=== PATIENT | female | born 1985 | race Hispanic/Latino ===

== ENCOUNTER 2017-11-06 01:55 | Inpatient (IN) | payer MEDICAID ==
[2017-11-06 02:07] VITALS: BMI 30.1
--- NOTE | 2017-11-06 07:04 | OBHP ---
Datetime: 11/06/2017 03:24 IP Adm Impression: Term, intrauterine ; Intact Membranes IP Adm Impression Other: Early Labor IP Admit Plan: Observation/Evaluation Admit Comment, IP Provider: 32 y/o F at 40.1 weeks GA, AYLA 11/05/17 by LMP 01/29/17 and confirm ed by 1st trim US, c/o CTX that began 4 hours ago, began as every 20 minutes in frequencyand now as e very 5 minutes, now 6/10 intensity. No vaginal bleeding or LOF. FM present. Pt reports expulsing a bl oody brownish mucus plug yesterday. Pt was evaluated by Dr Zhang yesterday, pt was reported to be 2-3 cm cervical dilated. Pt denies fever, headache, CP, SOB, N/V, urinary symptoms, rash. NKDA Meds: PNV P[facility] Clinic: [place], Dr Zhang. PN Labs: GBS neg, HIV neg, HBsAg neg, RPR neg, GC/Chlamydia neg, Blood group B+, antibody screen n eg. Rubella-immune. US at 36 weeks GA on 10/09: unremarkable and cephalic presentation. OBHx: . PMHx: Obstructive hydrocephalus, PSHx: Obstructive hydrocephalus corrective procedure. FHx: NC SHx: No tobacco, alcohol or rec drugs. A/P: 32 y/o F with IUP at 40.1 weeks GA. Pelvic pressure. Plan: - NST. - Observe. - Will re-evaluate in 2 hours for labor progression - Dr Shafer Notified. Pt was re examined at 5AM Cervical exam no change. Pt with irregular contractions. D/c Home was recommended. Pt wants to be admitted and go for water . Dr Shafer Notified. Plan as per Dr Shafer: Continue observation for progress of labor. To be re evaluated in the morning. Pelvic Type - PN: Adequate Extremities - PN: Normal Abdomen - PN: Normal Lungs - PN: Normal Heart - PN: Normal Thyroid - PN: Normal Neurologic - PN: Normal HEENT - PN: Normal General - PN: Normal Presentation-Admit: Vertex FHR - Baseline A Provider: 145 Membranes, Provider: Intact Contraction Comments Provider: Q 2-3 Gestation - Est Wks by US: 40.1 EGA AdmitDate IP: 40.1 Vital Signs Provider: Reviewed IP Chief Complaint: Uterine contractions; Maternal discomfort NICHD Variability Prov Fetus A: Moderate 6-25bpm FHR Category Provider Fetus A: Category I NICHD Decel Fetus A IP Provider: None Dilatation, Provider: 2-3 Effacement, Provider: 50 Station, Provider: -3 Genitourinary Exam: Normal
[2017-11-06] MEDS: Lactated Ringer's 1,000 ML IV SCH ×4 (08:30→20:00)
[2017-11-06 08:46] LABS: HEMATOCRIT 32.8 % (34.0-47.0); MEAN CELL VOLUME 82.9 fl (81.0-99.0); MEAN CORPUSCULAR HGB CONC 31.4 g/dL (33.0-37.0); RED CELL DISTRIBUTION WIDTH 13.8 % (11.5-14.5); WHITE BLOOD COUNT 9.5 K/uL (4.8-10.8)
[2017-11-06] MEDS ORDERED: Bupivacaine HCl 0.25% PF (10 ml) Inj ONE (10:25)
[2017-11-06] MEDS ORDERED: Fentanyl/Bupivacaine HCl 250 ML EPI ONE (10:25)
--- NOTE | 2017-11-06 11:16 | OBADHP ---
Datetime: 11/06/2017 11:10 Admit Comment, IP Provider: 32 yo G1 at 40+1 wks in labor Pt admitted to L_D FHT reassuring. GBS negative. H_P dictated, "[id number]" Extremities - PN: Normal Abdomen - PN: Normal Back - PN: Normal Lungs - PN: Normal Heart - PN: Normal Neurologic - PN: Normal HEENT - PN: Normal General - PN: Normal FHR - Baseline A Provider: 130's Membranes, Provider: Intact Contraction Comments Provider: irregular Vital Signs Provider: Reviewed IP Chief Complaint: Uterine contractions NICHD Variability Prov Fetus A: Moderate 6-25bpm NICHD Accel Fetus A IP Provider: 15X15 NICHD Decel Fetus A IP Provider: None Dilatation, Provider: 4 Effacement, Provider: 100 Station, Provider: -3 Genitourinary Exam: Normal EGA AdmitDate IP: 40.1 IP Adm Impression: Term, intrauterine IP Admit Plan: Admit to unit; Initiate labor protocol Datetime: 11/06/2017 03:24 IP Adm Impression Other: Early Labor Pelvic Type - PN: Adequate Thyroid - PN: Normal Presentation-Admit: Vertex Gestation - Est Wks by US: 40.1 FHR Category Provider Fetus A: Category I
--- NOTE | 2017-11-06 13:47 | HP ---
HISTORY OF PRESENT ILLNESS: This is a 32-year-old G1 at 40 weeks and 1 day with an EDC of 11/05/2017 by LMP consistent with a 12-week ultrasound, who presents with contractions since 23:30 every 5 minutes and some discharge. The patient reports some bloody show after her exams last night. Denies leaking of fluid. The patient's care was with Dr. Zhang at [facility]. 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 GBS was negative as of 10/09/2017. PAST MEDICAL HISTORY: Healthy, although she was born with a brain hydrocephalus and blockage symptoms in 1998 when she was 14 years old. She had no shunt placed, but she had a third ventriculoscopy with a bypass at 14 years old. PAST SURGICAL HISTORY: Third ventriculoscopy, no shunt, with a bypass at 14 years old. She had broken her left arm at 9 years old and needed surgery. MEDICATIONS: vitamins and Tums as needed. [employer] LAW CLERK HISTORY: Regular periods. The patient denies any STDs or any abnormal Pap smears. FAMILY HISTORY: Maternal great grandmother with breast cancer. SOCIAL HISTORY: The patient denies tobacco, alcohol, or illicit drug use. Of note, menarche was at 12 years old. ALLERGIES: NO KNOWN DRUG ALLERGIES. PHYSICAL EXAMINATION: VITAL SIGNS: Afebrile. Vital signs are stable. GENERAL: The patient appears uncomfortable during contractions. HEART: Regular rate and rhythm. LUNGS: Clear to auscultation bilaterally. ABDOMEN: Soft, nontender, gravid. EXTREMITIES: Nontender. VAGINAL: 4/ 100/ -2 at 07:40 a.m. External monitoring: Baseline is in the 130s with moderate variability and positive accelerations. Tocodynamometer: difficult to discern, but her contractions may be irregular. LABORATORY DATA: Blood type is B positive, antibody screen negative. Hemoglobin electrophoresis is within normal limits. Urine culture with no growth. TSH was 2.16. RPR was nonreactive. Rubella was immune. Hepatitis B surface antigen was negative. Pap smear was negative. HPV negative. Gonorrhea and chlamydia are negative. On 08/15/2017, one-hour Glucola was 116. HIV negative. RPR nonreactive. On 10/09/2017, group B Strep was negative. Hemoglobin was 10. On 06/18/2017, her AFP was negative. On 04/26/2017, Panorama was low-risk female fetus. ASSESSMENT AND PLAN: This is a 32-year-old G1 at 40 weeks and 1 day, in labor, desires an epidural. The patient is to be admitted to labor and delivery for labor management. heart tracing is reassuring and GBS is negative. Latrice Crystal MD MTDPopeye
[2017-11-06] MEDS ORDERED: Oxytocin 30 UNITS in Sodium Chloride 0.9% 500 ML IV ONE (13:58)
[2017-11-06] MEDS ORDERED: Lidocaine 1% Inj (20ml) ONE (14:30)
[2017-11-07] MEDS ORDERED: ceFAZolin IV 2 gm in Dextrose 2 GM/50 ML BAG IVPB ONE ×2 (00:42→00:50)
--- NOTE | 2017-11-07 00:42 | OBPN ---
Datetime: 11/07/2017 00:37 IP Progress Impression: Arrest of dilatation/descent IP Informed Consent Obtain: Section Delivery; Risks, Benefits and Alternatives Discussed IP Progress Plan: Deliver- Section Membranes, Provider: Ruptured FHR - Baseline A Provider: 130s IP Progress Note Comment: 32 yo G1 at 40+2 wks w/ arrest of descent Discussed dx w/ pt and her Consents signed. All questions answered. Vital Signs Provider: Reviewed NICHD Accel Fetus A IP Provider: 15X15 NICHD Variability Prov Fetus A: Moderate 6-25bpm Dilatation, Provider: 10 Effacement, Provider: 100 Station, Provider: 0 Datetime: 11/06/2017 11:10 Contraction Comments Provider: irregular NICHD Decel Fetus A IP Provider: None Datetime: 11/06/2017 03:24 Gestation - Est Wks by US: 40.1 Presentation-Admit: Vertex FHR Category Provider Fetus A: Category I
[2017-11-07] MEDS ORDERED: Morphine 5 mg/10 ml preservative-free Inj(Duramorph) ONE (00:44)
[2017-11-07] MEDS ORDERED: Oxytocin 30 UNITS in Sodium Chloride 0.9% 500 ML IV ONE (00:51)
[2017-11-07] MEDS ORDERED: Oxycodone/Acetaminophen 5/325 mg Tab PO PRN ×4 (02:17→05:41)
[2017-11-07] MEDS ORDERED: DiphenhydrAMINE 50 mg/ml Inj IVP PRN (02:33)
[2017-11-07] MEDS ORDERED: Naloxone 0.4 mg/ml Inj (Adult) IVP PRN (02:33)
[2017-11-07] MEDS ORDERED: Simethicone 80 mg Chewtab PO SCH (04:00)
[2017-11-07] MEDS ORDERED: Lactated Ringer's 1,000 ML IV SCH (05:41)
[2017-11-07] MEDS: Simethicone 80 mg Chewtab PO SCH ×3 (09:30→23:05)
[2017-11-07 11:24] LABS: WHITE BLOOD COUNT 12.8 K/uL (4.8-10.8)
[2017-11-07 11:25] LABS: BASO % 0.1 % (0.0-2.0); EOS % 0.1 % (0.0-4.0); HEMATOCRIT 24.9 % (34.0-47.0); LYMPH # 1.1 K/uL (1.0-4.3); LYMPH % 9.6 % (20.0-40.0); MEAN CELL VOLUME 81.7 fl (81.0-99.0); MEAN CORPUSCULAR HEMOGLOBIN 26.4 pg (27.0-31.0); MEAN CORPUSCULAR HGB CONC 32.3 g/dL (33.0-37.0); MEAN PLATELET VOLUME 8.5 fl (7.2-11.7); MONO % 8.7 % (0.0-10.0); NEUT # 1.2 K/uL (1.8-7.0); NEUT % 81.5 % (50.0-75.0); NRBC % 10.4 % (0.0-0.0); PLATELET COUNT 244 K/uL (130-400); RED CELL DISTRIBUTION WIDTH 14.1 % (11.5-14.5)
--- NOTE | 2017-11-07 11:58 | OBPPN ---
Datetime: 11/07/2017 11:56 PP Pain Prov: Within normal limits PP Nausea Prov: Denies PP Flatus Prov: Yes PP Breasts Prov: Not Done PP Heart Prov: Normal PP Lungs Prov: Normal PP Abdomen/Uterus Prov: Normal PP Lochia Prov: Not Done PP Vulva/Perineum Prov: Not Done PP CVA Tenderness Prov: Normal PP Extremities Prov: Normal PP C/S Incision Prov: Normal PP Progress Prov: Normal PP Impression Prov: Normal progression PP Plan Prov: Continue present management PP Progress Note Prov: Patient doing well pain well controlled Vital signs stable afebrile Uterus firm below the umbilicus Incision clean dry and intact Postoperative day #1 Ambulation, regular diet, analgesics as needed Vital Signs Provider PP: Reviewed
[2017-11-07 13:16] LABS: NEUTROPHIL 86 % (42-75); TOTAL CELLS COUNTED 100
[2017-11-08] MEDS: Simethicone 80 mg Chewtab PO SCH ×4 (04:55→22:39)
--- NOTE | 2017-11-08 07:58 | NBPN ---
Datetime: 11/08/2017 07:56 Nsy Prov Gen Appearance: Within Normal Limits Nsy Prov Skin: Within Normal Limits Nsy Prov Neuro: Normal Tone; Stanton; Grasp; Root; Suck Nsy Prov Musculoskeletal: Within Normal Limits; Full Range of Motion; Spontaneous Movement All Extre mities; Intact Clavicles; Clavicles without Crepitus; Gluteal Folds Symmetrical; Spine Within Normal Limits; No Sacral Dimple/Cyst Nsy Prov Head: Normal Fontanelles; Normocephalic; Sutures WNL Nsy Prov EENT: Mouth Within Normal Limits; Ears Within Normal Limits; Eyes Within Normal Limits; Eye s Red Reflex Bilaterally; Nose Within Normal Limits; Face Within Normal Limits Nsy Prov Cardiovascular: Within Normal Limits; Normal Pulses Nsy Prov Respiratory: Within Normal Limits Nsy Prov GI: Within Normal Limits; Soft; Normal Liver; Non Palpable Spleen; Patent Anus Nsy Prov Umbilicus: Within Normal Limits; Three Vessel Cord Nsy Prov : Normal Female Genitalia Nsy Prov Impression: Healthy Term [place]; Vital Signs Appropriate; Bonding Appropriately; Voiding a nd Stooling Nsy Prov Plan: Continue Care Nsy Prov Impression/Plan Details: Well baby girl.
--- NOTE | 2017-11-08 08:42 | OBDS ---
DELIVERY PERSONNEL Delivery Doctor: Juan M Crystal MD Packing Clerk: Catalina TSAI, Oneyda TSAI Anesthesiologist: Matt Thurman MD MATERNAL INFORMATION Delivery Anesthesia: Epidural; Spinal Medications in Delivery: Pitocin Estimated Blood Loss (ml): 800 Placenta Cultured: No Maternal Complications: Prolonged Second Stage > 2 Hrs Provider Comments: Pre-op dx: 32 yo G1 at 40+2 wks w/ arrest of descent Post-op dx: Same Procedure: Primary low transverse section Surgeon: Bonilla Ad Compositor: Dr. Baer, the hospitalist Anesthesia: Spinal Anesthesiologist: Dr. Thurman Findings: A viable female delivereed through clear fluid at 1:28 am. Apgars 9 and 9. Wt 8 #1, 3670gms. Nl appearing uterus, tubes and ovaries Complications: None EBL: 800 mL LABOR SUMMARY EDC: 11/05/2017 00:00 No. Babies in Womb: 1 Attempted: No Labor Anesthesia: Epidural, Spinal LABOR INFORMATION Reason for Induction: Not Applicable Onset of Labor: 11/05/2017 23:00 Complete Dilatation: 11/06/2017 21:35 Oxytocin: Augmentation Group B Beta Strep: Negative Antibiotics # of Doses: 1 Antibiotics Time of Last Dose: 0058 Steroids Given: None Reason Steroids Not Administered: Not Applicable MEMBRANES Membranes Rupture Method: Spontaneous Rupture of Membranes: 11/06/2017 19:20 Length of Rupture (hrs): 6.13 Amniotic Fluid Color: Clear Amniotic Fluid Amount: Moderate Amniotic Fluid Odor: Normal STAGES OF LABOR Stage 1 hrs: 22 Stage 1 min: 35 Stage 2 hrs: 3 Stage 2 min: 53 Stage 3 hrs: 0 Stage 3 min: 1 Total Time in Labor hrs: 26 Total Time in Labor min: 29 CSECTION DELIVERY Primary Indication: Arrest of Descent CSection Urgency: Non Elective CSection Incidence: Primary Labor: Labor Elective: Nonelective CSection Incision: Lower Uterine Transverse BABY A INFORMATION Infant Delivery Date/Time: 11/07/2017 01:28 Method of Delivery: Born in Route : No : N/A Forceps: N/A Vacuum Extraction: N/A Shoulder Dystocia : No SHOULDER DYSTOCIA BABY A Infant Delivery Date/Time: 11/07/2017 01:28 PRESENTATION/POSITION BABY A Presentation: Cephalic Cephalic Presentation: Vertex Breech Presentation: N/A PLACENTA INFORMATION BABY A Placenta Delivery Time : 11/07/2017 01:29 Placenta Method of Delivery: Manual Removal Placenta Status: Delivered SCORES BABY A Heart Rate 1 min: >100 bpm Resp Effort 1 min: Good Cry Reflex Irritability 1 min: Cough or Sneeze or Pulls Away Muscle Tone 1 min: Active Motion Color 1 min: Body [place], Extremities Blue Resuscitation Effort 1 min: Tactile Stimulation SCORE 1 MIN: 9 Heart Rate 5 min: >100 bpm Resp Effort 5 min: Good Cry Reflex Irritability 5 min: Cough or Sneeze or Pulls Away Muscle Tone 5 min: Active Motion Color 5 min: Body [place], Extremities Blue Resuscitation Effort 5 min: N/A SCORE 5 MIN: 9 INFORMATION BABY A Gestational Age at Delivery: 40.2 Gestational Status: Term Outcome : Liveborn Condition : Stable Sex: Female IDENTIFICATION/MEDS BABY A ID Band Number: [id number] ID Band Location: Left Leg; Left Arm WEIGHT/LENGTH BABY A Infant Birthweight (gms): 3670 Weight (lb): 8 Infant Weight (oz): 1 CORD INFORMATION BABY A No. Cord Vessels: 3 Nuchal Cord : N/A Cord Blood Taken: Yes Infant Suction: Mouth; Nose ASSESSMENT BABY A Infant Complications: None Physical Findings at Delivery: Within Normal Limits Infant Respirations: Appears Normal Maintenance Helper Utility Engineer/ALS Called : No Care By: Flaquito Sky RN Transferred To: Remains with Mother
--- NOTE | 2017-11-08 09:10 | OP ---
PROCEDURE DATE: 11/07/2017 PREOPERATIVE DIAGNOSES: This is a 32-year-old 1 at 40 weeks and 2 days with arrest of descent. POSTOPERATIVE DIAGNOSES: This is a 32-year-old 1 at 40 weeks and 2 days with arrest of descent. PROCEDURE: A primary low-transverse section. SURGEON: Latrice Crystal MD. APPLICATION RELEASE MANAGER: Kobi Baer MD, the hospitalist. Dr. Baer was the surgical device sales representative and participated in the surgery for the entire duration of the case. He helped create exposure. He also helped maintain hemostasis, operated throughout the case on the side of the patient that was across from him and assisted in the delivery of the infant by applying fundal pressure. This case could not have been completed without his assistance. TYPE OF ANESTHESIA: The epidural was converted to a spinal. ANESTHESIA ADMINISTERED BY: Theodore Thurman DO. FINDINGS: A viable female delivered through clear fluid at 01:28 a.m. Apgars were 9 and 9 at one and five minutes respectively. The weight was 8 pounds 1 ounce or 3670 grams. Normal-appearing uterus, tubes and ovaries. ESTIMATED BLOOD LOSS: About 800 mL. COMPLICATIONS: None. DESCRIPTION OF PROCEDURE: The patient was taken to the operating room and the epidural was removed and a spinal was placed. She was then prepped and draped in the normal sterile fashion in the dorsal supine position with a leftward tilt. A Saravia was also placed in the bladder. A time-out was done. The spinal was tested and found to be adequate. A Pfannenstiel skin incision was then made with a scalpel and carried through to the underlying layer of fascia with the Bovie. The fascia was incised in the midline. The incision was extended laterally with the Bovie over a Shereen. The superior aspect of the fascial incision was then grasped with the Rolando clamps, elevated and the underlying rectus muscles were dissected off bluntly and with the Bovie. Attention was then turned to the inferior aspect of this incision, which in a similar fashion was grasped, tented up with the Rolando clamps and the rectus muscles were dissected off bluntly and with the Bovie. The rectus muscles were then in the midline. The peritoneum was identified, tented up and entered sharply with the Metzenbaum scissors. The peritoneal incision was then extended superiorly and inferiorly with good visualization of the bladder. The bladder blade was then inserted and the vesicouterine peritoneum was identified, grasped with the pickups and entered sharply with the Metzenbaum scissors. This incision was then extended laterally and the bladder flap was created digitally. The bladder blade was then inserted and lower uterine segment was incised in a transverse fashion with the scalpel. The uterine incision was then extended in a cephalocaudad direction digitally. The bladder blade was removed. The infant's head delivered atraumatically. The nose and mouth were suctioned with a bulb suction. The cord was clamped and cut. The was handed off to the awaiting milk receiver. Cord blood was then collected. The placenta was then delivered as the uterus was massaged. The uterus was then exteriorized and cleared of all clots and debris with a dry sponge curettage. The uterine incision was then repaired with 0 Vicryl in a running locked fashion. A second layer of the same suture was used in imbricating fashion to reinforce the incision and for hemostasis. The abdomen was then well irrigated and the uterus was returned to the abdomen. The gutters were cleared of all clots. The uterine incision was then reexamined and a few interrupted stitches of 0 Vicryl were placed for hemostasis. The peritoneum was then closed with 0 plain. The muscle was then approximated with 2 interrupted stitches using 2-0 plain gut. The fascia was then reapproximated using 0 Vicryl in a running fashion. The subcutaneous fat was well irrigated. A running stitch of 2-0 plain gut was used to close the small space of the subcutaneous fat. The skin was then closed with 4-0 Monocryl in a subcuticular fashion. The patient tolerated the procedure well. Sponge, lap and needle counts were correct. The patient received 2 g of Ancef prior to the procedure. The patient was taken to the recovery room in stable condition. Latrice Crystal MD PETE
[2017-11-09] MEDS: Simethicone 80 mg Chewtab PO SCH ×3 (05:12→16:30)
--- NOTE | 2017-11-09 07:14 | OBPPN ---
Datetime: 11/08/2017 08:47 PP Pain Prov: Within normal limits PP Nausea Prov: Denies PP Flatus Prov: Yes PP BM Prov: No PP Breasts Prov: Normal PP Heart Prov: Normal PP Lungs Prov: Normal PP Abdomen/Uterus Prov: Normal PP Lochia Prov: Normal PP Vulva/Perineum Prov: Normal PP CVA Tenderness Prov: Normal PP Extremities Prov: Normal PP C/S Incision Prov: Normal PP Progress Prov: Normal PP Impression Prov: Normal progression PP Plan Prov: Continue present management PP Progress Note Prov: H/H 07/12 POD 1 Anemia - asymtpomatic Cont postop care Vital Signs Provider PP: Reviewed; Within Normal Limits
[2017-11-10] MEDS: Simethicone 80 mg Chewtab PO SCH ×3 (00:20→09:34)
--- NOTE | 2017-11-10 11:09 | OBPPN ---
Datetime: 11/10/2017 11:07 PP Pain Prov: Within normal limits PP Nausea Prov: Denies PP Flatus Prov: Yes PP Breasts Prov: Normal PP Heart Prov: Normal PP Lungs Prov: Normal PP Abdomen/Uterus Prov: Normal PP Lochia Prov: Normal PP Vulva/Perineum Prov: Normal PP CVA Tenderness Prov: Normal PP Extremities Prov: Normal PP Comments Phys Exam Prov: Fundus firm under umbilicus Incision clean/dry/intact PP Impression Prov: Normal progression PP Plan Prov: Continue present management PP Progress Note Prov: Patient denies CP, no SOB, no N/V tolerating PO diet, ambulating/voiding well , mild lochia A/P POD #3 1. discharge home 2. discharge instructions reviewed IP PP Procedures: None Vital Signs Provider PP: Reviewed; Within Normal Limits
--- NOTE | 2017-11-10 11:09 | OBDCSUM ---
Datetime: 11/10/2017 10:25 Discharged to, Provider: Home Follow up at, Provider: SEAM PRESS OPERATOR Disch Instr Activity: Normal activity Disch Instr Diet: Regular Discharge Instructions, Provider: Routine instructions given Discharge Diagnosis, Provider: Term Delivered Discharge Time: 11/10/2017 11:08 Follow up in weeks, Provider: 1 Week Disch Referrals: None Contraception discussed, Prov: Yes Disch Activity Restrictions: No sexual activity; Nothing in vagina - Arthur, tampons, douche
[2017-11-10 20:26] VITALS: BP 125/76; PULSE 92; RESP 18; TEMP 98; O2SAT 99
== END 2017-11-10 11:50 | disposition home or self-care (01) | DRG 370 ==
LOC: H.EROB2 01:55 → H.L&D 08:17 → H.OB/GYN 11-07 05:10
PROVIDERS: ADMIT Obstetrics & Gynecology; ATTEND Obstetrics & Gynecology
PROC: 4A1HXCZ Monitoring of Products of Conception, Cardiac Rate, External Approach (ICD-10-PCS; 2017-11-06)
PROC: 10D00Z1 Extraction of Products of Conception, Low, Open Approach (ICD-10-PCS; principal; 2017-11-07)
DX: O63.1 Prolonged second stage (of labor) (principal); O99.02 Anemia complicating childbirth; D64.9 Anemia, unspecified; Z37.0 Single live birth; O62.0 Primary inadequate contractions; O62.1 Secondary uterine inertia; Z3A.40 40 weeks gestation of pregnancy; Z80.3 Family history of malignant neoplasm of breast